=== PATIENT | male | born 1955 ===

== ENCOUNTER 2020-06-10 09:44 | Day surgery (SDC) | payer OTHER | END 2020-06-10 18:35 | disposition home or self-care (01) | LOC: CIR.AMB 09:44 | PROVIDERS: ATTEND Orthopaedic Surgery Sports Medicine | DX: S83.241A Other tear of medial meniscus, current injury, right knee, initial encounter (principal); M67.51 Plica syndrome, right knee; M94.261 Chondromalacia, right knee ==